=== PATIENT | male | born 1975 | race Caucasian/White ===

== ENCOUNTER 2024-01-03 03:36 | Emergency (ER) | payer OTHER ==
[~2024-01-03] VITALS: Ht 185.4 cm; Wt 97.7 kg
[2024-01-03 03:50] VITALS: BP 124/71; PULSE 92; RESP 20; TEMP 98.1
[2024-01-03] MEDS ORDERED: HYDR30CR3 TP (04:28)
== END 2024-01-03 04:39 | disposition home or self-care (01) ==
LOC: EMS 03:38
DX: S60.562A Insect bite (nonvenomous) of left hand, initial encounter (principal); F17.210 Nicotine dependence, cigarettes, uncomplicated; W57.XXXA Bitten or stung by nonvenomous insect and other nonvenomous arthropods, initial encounter; Y93.89 Activity, other specified; Y92.89 Other specified places as the place of occurrence of the external cause; Y99.8 Other external cause status
CPT/HCPCS: 99282; Z7502